=== PATIENT | female | born 1950 | race African-American/Black ===

== ENCOUNTER 2019-11-18 19:36 | Emergency (ER) | payer MEDICARE ==
[~2019-11-18] VITALS: Ht 167.6 cm; Wt 172.4 kg
--- NOTE | 2019-11-18 19:29 | Emergency Room Report ---
History of Present Illness General Source: Patient Present Illness HPI 68-year-old -Cong[place] female brought in for generalized weakness. Patient has COVID positive contacts at home. The patient's symptoms were gradual onset, severity was moderate, duration since 1 week. Patient endorses cough (dry), fatigue, decreased appetite. Past medical history: DM, HTN, HLD, morbid obesity Past surgical history: Denies Smoking: Denies Alcohol use: Denies Drug use: Denies Review of systems: CONST: + fevers + chills, No night sweats PULMONARY: + cough, + shortness of breath CARDIAC: No chest pain, No palpitations GI: No vomiting, + diarrhea , No melena_or_BRBPR : No dysuria, No hematuria, No discharge NEURO: No new_focal_weakness_or_numbness, No confusion, No vision changes 14 point Review of Systems is otherwise negative except per HPI Physical Exam: GENERAL: Awake_alert_ nontoxic, no acute distress Spo2 95% on RA normal. Morbidly obese. EYES: Extraocular muscles are intact. Conjunctivae clear. Lids without swelling ENT: External nose and ear normal_in_appearance. Oropharynx clear. Head_ atraumatic, Moist_oral_mucosa NECK: No JVD. No meningismus. No thyromegaly. Supple. Trachea midline RESP: Normal respiratory effort. Symmetric rise. No stridor. Clear_to_ auscultation_No_rales_No_wheezes CARDIAC: Regular rate and regular rhythm on_auscultation No_significant pedal edema. ABDOMEN: In soiled diaper. Soft. Nondistended. Nontender_No_rebound_or_guarding. MSK: Normal muscle tone, without rigidity. Extremities without asymmetric deformity or swelling. SKIN: Warm and dry. No visible cyanosis or pallor NEUROLOGIC: Alert, oriented x3. Motor_and_sensation_grossly_intact. No truncal ataxia. Gait_normal Psych: Normal mood and affect, normal judgment and insight - COORDINATION OF CARE Case was discussed with: Patient; patient's family Any labs and imaging that were ordered were interpreted as part of the medical decision making: Medical Decision Making/Plan: DDx: includes COVID-19 / coronavirus infection, URI, bronchitis, viral syndrome , postnasal drip, versus less likely pneumonia, among others. The patient is chronically ill appearing and morbidly obese. Mild increased WOB on RA. CXR reveled multifocal PNA. Labs are concerning for NSTEMI. EKG shows no acute ST elevation [place]. Also labs are concerning for CKD. and dehydration. Patient was given aspirin. Also received Rocephin, Zithromax, and Decadron 6 mg IV. No evidence of ENT emergency, airway patent, tolerating oral liquids and solids. No stridor or difficulty breathing. Tonsils within normal limits, no evidence of swelling, exudate or strep pharyngitis. No indication for empiric antibiotic treatment. Sublingual space soft. Patient is coughing profusely during exam. Doubt dissection. Doubt massive PE. EKG does not show massive heart strain. I spoke with Dr. Soriano and reviewed the patients presentation, workup, results , and treatment. They will admit the patient for further care and evaluation, and assume care of the patient at this time. The patient has been stabilized to the best of this emergency department's capabilities. Given the patient's medical needs, appropriate facilities for transfer were discussed and the decision has been made to transfer this patient to [facility]. The receiving facility has the capacity and capabilities to provide care for the patient. I spoke with Dr Soriano who accepted the patient in transfer. The patient has been informed and updated of their current clinical status. The patient has given verbal consent for the transfer. The risks and benefits were explained and the patient verbalizes their understanding. The patient will be transported by S Allergies: Coded Allergies: No Known Allergies (Unverified , 11/18/19) Physical Exam Sp02 EP Interpretation: reviewed, normal Procedures Critical Care Time Critical Care Time Critical Care Statement Organ systems at risk include: Cardiac, circulatory, pulmonary Critical care performed for 70 minutes. Time is exclusive of separately billable procedures. Time includes: direct patient care, continuous monitoring and multiple patient reassessment, coordination of patient care, review of patient's medical records , medical consultation, family consultation regarding treatment decisions and documentation of patient care. Medical Decision Making Diagnostic Impression: Primary Impression: Pneumonia due to COVID-19 virus Additional Impressions: Morbid obesity HTN (hypertension) COPD (chronic obstructive pulmonary disease) Diabetes NSTEMI (non-ST elevated myocardial infarction) CKD (chronic kidney disease) Dehydration EKG Diagnostic Results KAREN Anand Text 12-lead EKG (interpreted by me) Time: 1929 Indication: [Rhythm analysis] Tracing visualized and Interpreted by me. Rhythm: [Normal sinus rhythm] Rate: 98 bpm QTc: [485 Morphology: No_significant_ST_elevations_or_depressions, No STEMI Impression: Normal sinus rhythm. LVH. Rhythm Strip Diag. Results Rhythm Strip Time: 21:08 EP Interpretation: yes Rate: 95 Rhythm: NSR, no PVC's, no ectopy Chest X-Ray Diagnostic Results Chest X-Ray Diagnostic Results : KAREN Scribe Text Chest X-ray: Views: 1 view view(s) Indication: Generalized weakness Findings: Normal heart size. Mediastinum normal. Multifocal pneumonia Impression: Multifocal atypical pneumonia The X-ray(s) were independently viewed and interpreted contemporaneously - Electronically signed by Quita noe DO Reevaluation Time: 21:09 Status: improved Disposition: ADMITTED INPATIENT - [facility] COMM Admit Decision Time: 20:00 Condition: Stable Quita Fuller D.O. Nov 18, 2019 19:29
[2019-11-18 19:40] VITALS: BP 124/70
[2019-11-18] MEDS ORDERED: HYDROCHLOROTHIA25 MG ORAL (20:02)
[2019-11-18] MEDS ORDERED: ATORVASTATIN CA40 MG ORAL (20:02)
[2019-11-18] MEDS ORDERED: CENTRUM COMPLE1 EAC1 PO (20:02)
[2019-11-18] MEDS ORDERED: BENAZEPRIL HCL40 MG ORAL (20:02)
[2019-11-18] MEDS ORDERED: ALLOPURINOL300 M1 ORAL (20:02)
[2019-11-18] MEDS ORDERED: AMLODIPINE BESY10 MG ORAL (20:02)
[2019-11-18] MEDS ORDERED: ADVIL200 M2 ORAL (20:02)
[2019-11-18] MEDS ORDERED: ATENOLOL50 MG ORAL (20:02)
[2019-11-18 20:42] LABS: BASOPHILS % (AUTO) 0.4 % (0.0-2.0); EOSINOPHILS % (AUTO) 0.1 % (0.0-3.0); HEMATOCRIT 40.1 % (37.0-47.0); HEMOGLOBIN 13.2 G/DL (12.0-16.0); LYMPHOCYTES % (AUTO) 10.2 % (20.0-45.0); MEAN CORPUSCULAR VOLUME 85 FL (80-99); MONOCYTES % (AUTO) 7.8 % (1.0-10.0); NEUTROPHILS % (AUTO) 81.6 % (45.0-75.0); PLATELET COUNT 106 K/UL (150-450); RED CELL DISTRIBUTION WIDTH 14.7 % (11.6-14.8); WHITE BLOOD COUNT 9.1 K/UL (4.8-10.8)
[2019-11-18 20:50] LABS: ANION GAP 12 mmol/L (5-15); BLOOD UREA NITROGEN 51 mg/dL (7-18); CALCIUM 9.9 MG/DL (8.5-10.1); CARBON DIOXIDE 24 MMOL/L (21-32); CHLORIDE 97 MMOL/L (98-107); CREATININE 2.6 MG/DL (0.55-1.30); POTASSIUM 3.8 MMOL/L (3.5-5.1); SODIUM 133 MMOL/L (136-145)
[2019-11-18 21:11] LABS: APPEARANCE,URINE CLOUDY; BILIRUBIN, URINE 1+ (NEGATIVE); COLOR,URINE BROWN; GLUCOSE, URINE (UA) NEGATIVE (NEGATIVE); KETONES,URINE 1+ (NEGATIVE); LEUKOCYTE ESTERASE ,URINE 1+ (NEGATIVE); NITRITE,URINE NEGATIVE (NEGATIVE); PH,URINE 5 (4.5-8.0); PROTEIN,URINE 3+ (NEGATIVE); UROBILINOGEN,URINE 1 MG/DL (0.0-1.0)
[2019-11-18 21:13] LABS: ALANINE AMINOTRANSFERASE 72 U/L (12-78); ALBUMIN 3.8 G/DL (3.4-5.0); ALKALINE PHOSPHATASE 103 U/L (46-116); ASPARTATE AMINO TRANSFERASE 113 U/L (15-37); BILIRUBIN,TOTAL 0.6 MG/DL (0.2-1.0); CREATINE KINASE 3659 U/L (26-308)
[2019-11-18 21:25] VITALS: BP 114/87
[2019-11-18 22:30] VITALS: BP 118/41
[2019-11-18] MEDS ORDERED: Azithromycin 250mg tab ORAL ONE (22:30)
[2019-11-18] MEDS ORDERED: cefTRIAXone 2 GM in NS 55 ML IVPB ONE (22:30)
[2019-11-18 23:15] VITALS: BP 122/60
--- NOTE | 2019-11-19 16:15 | Diagnostic Imaging Report ---
Indication: Shortness of breath Technique: One view of the chest Comparison: None Findings: There are bilateral mostly interstitial infiltrates versus edema. There is some central bronchial wall thickening. The heart is upper limits normal in size. The pleural spaces are clear. Impression: Bilateral infiltrates versus edema. Correlate with clinical findings
== END 2019-11-18 23:15 | disposition other institution (70) ==
LOC: EDBD 19:36 → EMR 20:48 → EDBEDREQ 21:20 → EDBEDREQSVC 21:59 → EMR 23:15
DX: U07.1 COVID-19 (principal); J12.89 Other viral pneumonia; E66.01 Morbid (severe) obesity due to excess calories; J44.9 Chronic obstructive pulmonary disease, unspecified; E11.9 Type 2 diabetes mellitus without complications; I21.4 Non-ST elevation (NSTEMI) myocardial infarction; E11.22 Type 2 diabetes mellitus with diabetic chronic kidney disease; I12.9 Hypertensive chronic kidney disease with stage 1 through stage 4 chronic kidney disease, or unspecified chronic kidney disease; N18.9 Chronic kidney disease, unspecified; E86.0 Dehydration; E78.5 Hyperlipidemia, unspecified; Z68.44 Body mass index [BMI] 60.0-69.9, adult
CPT/HCPCS: 36415; 71045; 80053; 81003; 82550; 83880; 84484; 85025; 87086; 87181; 96365; 96375; 99291; J0696; J1100; U0002